=== PATIENT | female | born 1945 | race Caucasian/White ===

== ENCOUNTER 2022-12-05 09:17 | Inpatient (IN) | payer MEDICARE, OTHER ==
[~2022-12-05] VITALS: Ht 149.9 cm; Wt 42.2 kg
[2022-12-05] MEDS ORDERED: SODIUM CHLORIDE 0.9% 1000ML 1,000 ML IV STA (09:29)
[2022-12-05 09:56] LABS: BASOPHILS % 0.4 % (0.0-1.0); EOSINOPHILS % 0.1 % (0.0-6.0); HEMATOCRIT 44.4 % (34.2-44.1); LYMPHOCYTES # (AUTO) 1.3 (1.0-3.2); LYMPHOCYTES % 18.1 % (18.0-39.1); MEAN CORPUSCULAR HEMOGLOBIN 28.2 pg (28-32); MEAN CORPUSCULAR HGB CONC 31.5 g/dL (31-35); MEAN CORPUSCULAR VOLUME 89.3 fL (81-99); MONOCYTES # (AUTO) 0.5 (0.2-0.8); MONOCYTES % 6.8 % (4.4-11.3); NEUTROPHILS # (AUTO) 5.4 (2.1-6.9); NEUTROPHILS % 74.1 % (38.7-80.0); PLATELET COUNT 226 x10e3/uL (140-360); RED BLOOD COUNT 4.97 x10e6/uL (3.6-5.1); RED CELL DISTRIBUTION WIDTH 12.7 % (11.7-14.4)
[2022-12-05 10:14] LABS: CLARITY,URINE HAZY (CLEAR); COLOR,URINE YELLOW (YELLOW); LEUKOCYTE ESTERASE ,URINE NEGATIVE (NEGATIVE); NITRITE,URINE NEGATIVE (NEGATIVE); PROTEIN,URINE DIPSTICK NEGATIVE (NEGATIVE)
[2022-12-05 10:15] LABS: BACTERIA,URINE FEW /HPF; EPITHELIAL CELLS,URINE FEW /LPF; KETONES,URINE NEGATIVE (NEGATIVE); RBC,URINE 0-5 /HPF (0-5); URINE UROBILINOGEN 0.2 mg/dL (0.2 - 1); WBC,URINE (MAN) 0-5 /HPF (0-5)
[2022-12-05 10:17] LABS: ALBUMIN/GLOBULIN RATIO 1.1 (0.8-2.0); ANION GAP 15.1 mmol/L (8-16); CALCIUM 10.4 mg/dL (8.4-10.2); CREATININE, SERUM 0.85 mg/dL (0.57-1.11); MAGNESIUM 1.8 MG/DL (1.3-2.1); POTASSIUM 3.1 mmol/L (3.5-5.1)
[2022-12-05 10:18] LABS: INR 0.94; PARTIAL THROMBOPLASTIN TIME 25.6 seconds (23.8-35.5); PROTHROMBIN TIME 12.8 seconds (11.9-14.5)
[2022-12-05] MEDS ORDERED: Morphine 2mg Syringe 2 MG/ML SYR IV ONE (10:30)
[2022-12-05] MEDS ORDERED: ONDANSETRON HCL INJ 2MG/ML 2ML 2 MG/ML VIAL IV ONE (10:30)
[2022-12-05 10:37] LABS: CREATINE KINASE MB 8.8 ng/mL (0-5.0); THYROID STIMULATING HORMONE 3.864 uIU/mL (0.350-4.940)
[2022-12-05] MEDS ORDERED: ONDANSETRON HCL INJ 2MG/ML 2ML 2 MG/ML VIAL IV PRN (10:45)
[2022-12-05] MEDS ORDERED: ACETAMINOPHEN 325 MG TAB PO PRN ×2 (10:45→13:15)
[2022-12-05] MEDS ORDERED: KCL 20MEQ/.9 SOD CHL 1,000 ML IV ONE (10:45)
[2022-12-05] MEDS ORDERED: POTASSIUM CHLORIDE 20 MEQ TAB CR PO ONE (11:00)
[2022-12-05] MEDS ORDERED: METOPROLOL TARTRATE 25 MG TAB PO ONE (11:30)
[2022-12-05] MEDS ORDERED: ASPIRIN 81 MG CHEW TAB PO ONE (11:30)
[2022-12-05] MEDS ORDERED: METOPROLOL TARTRATE 25 MG TAB ONE (11:32)
[2022-12-05] MEDS: FAMOTIDINE 20 MG/2 ML VIAL IV SCH (11:36)
[2022-12-05] MEDS ORDERED: CLOPIDOGREL BISULFATE 75 MG TAB PO ONE (12:00)
[2022-12-05 13:13] VITALS: BP 168/96
[2022-12-05] MEDS ORDERED: MELATONIN 3 MG TAB PO PRN (13:15)
[2022-12-05] MEDS ORDERED: HYDRALAZINE HCL 20 MG/ML VIAL IV PRN (13:15)
[2022-12-05] MEDS ORDERED: MAGNESIUM HYDROXIDE 30 ML UDC PO PRN (13:15)
[2022-12-05 13:35] LABS: CHOL/HDL RATIO 3.1 (3.0-3.6)
[2022-12-05 15:48] VITALS: BP 142/84
[2022-12-05] MEDS ORDERED: MIRTAZAPINE15 MG PO (15:56)
[2022-12-05] MEDS ORDERED: ATROPINE OS (15:56)
[2022-12-05] MEDS ORDERED: ATORVASTATIN CA20 MG PO (15:56)
[2022-12-05] MEDS ORDERED: LOTEMAX5 ML OS (15:56)
[2022-12-05] MEDS ORDERED: OFLOXACIN5 ML OS (15:56)
[2022-12-05] MEDS: CARVEDILOL 12.5 MG TAB PO SCH (16:36)
[2022-12-05] MEDS ORDERED: METOPROLOL TARTRATE 25 MG TAB PO SCH (17:00)
[2022-12-05 18:04] LABS: CREATINE KINASE MB 9.8 ng/mL (0-5.0)
[2022-12-05] MEDS ORDERED: HEPARIN IV SCH (18:30)
[2022-12-05] MEDS ORDERED: DEXTROSE 5% IV SCH (18:30)
[2022-12-05] MEDS ORDERED: HEPARIN 25,000 UNIT 500 UNIT in DEXTROSE 5% 250ML 250 ML IV SCH (19:00)
[2022-12-05 19:52] VITALS: BP 148/78
[2022-12-05 20:00] VITALS: BP 125/72
[2022-12-05 20:42] VITALS: BP 132/65
[2022-12-05] MEDS ORDERED: HEPARIN 25,000 UNIT DRIP IV ONE (20:42)
[2022-12-06] VITALS (21 sets, daily range): BP systolic 91–166; BP diastolic 56–87
[2022-12-06] MEDS: FAMOTIDINE 20 MG/2 ML VIAL IV SCH ×3 (00:30→22:50)
[2022-12-06 06:03] LABS: BASOPHILS # (AUTO) 0.1 (0.0-0.1); BASOPHILS % 1.1 % (0.0-1.0); EOSINOPHILS # (AUTO) 0.1 (0.0-0.4); EOSINOPHILS % 2.2 % (0.0-6.0); HEMATOCRIT 37.1 % (34.2-44.1); LYMPHOCYTES # (AUTO) 1.7 (1.0-3.2); LYMPHOCYTES % 37.6 % (18.0-39.1); MEAN CORPUSCULAR HEMOGLOBIN 28.6 pg (28-32); MEAN CORPUSCULAR HGB CONC 31.5 g/dL (31-35); MEAN CORPUSCULAR VOLUME 90.7 fL (81-99); MONOCYTES # (AUTO) 0.4 (0.2-0.8); MONOCYTES % 9.8 % (4.4-11.3); NEUTROPHILS # (AUTO) 2.2 (2.1-6.9); NEUTROPHILS % 49.1 % (38.7-80.0); PLATELET COUNT 177 x10e3/uL (140-360); RED BLOOD COUNT 4.09 x10e6/uL (3.6-5.1); RED CELL DISTRIBUTION WIDTH 13.5 % (11.7-14.4)
[2022-12-06 06:18] LABS: ALBUMIN 3.1 g/dL (3.5-5.0); ANION GAP 11.1 mmol/L (8-16); CHOL/HDL RATIO 3.2 (3.0-3.6); CREATININE, SERUM 0.74 mg/dL (0.57-1.11); POTASSIUM 4.1 mmol/L (3.5-5.1)
[2022-12-06 06:19] LABS: HEMOGLOBIN 11.7 g/dL (12.0-16.0)
[2022-12-06 06:38] LABS: CREATINE KINASE MB 5.4 ng/mL (0-5.0)
[2022-12-06] MEDS ORDERED: LISINOPRIL 2.5 MG TAB PO SCH (09:00)
[2022-12-06] MEDS: CARVEDILOL 12.5 MG TAB PO SCH ×2 (09:00→16:07)
[2022-12-06] MEDS ORDERED: ASPIRIN 325 MG TAB EC PO SCH (09:00)
[2022-12-06] MEDS ORDERED: HEPARIN SOD (PORCINE) 1000 UNIT/ML 30ML ONE (09:12)
[2022-12-06] MEDS ORDERED: HEPARIN SOD/SOD CHLORIDE 2,000 ML ONE (09:13)
[2022-12-06] MEDS ORDERED: LIDOCAINE HCL 1% 30ML-PF VIAL ONE (09:13)
[2022-12-06] MEDS ORDERED: IOPAMIDOL 370 MG/ML 100 ML INFUS..BTL INJ ONE (09:14)
[2022-12-06] MEDS ORDERED: NITROGLYCERIN/D5W 200 MCG/ML 250 ML ONE (09:14)
[2022-12-06] MEDS ORDERED: SODIUM CHLORIDE 0.9% 1000ML 1,000 ML ONE (09:14)
[2022-12-06] MEDS ORDERED: MIDAZOLAM HCL 2 MG/2 ML VIAL ONE (09:32)
[2022-12-06] MEDS ORDERED: FENTANYL CITRATE/PF 100MCG/2 ML INJ ONE (09:33)
[2022-12-06] MEDS ORDERED: CLOPIDOGREL BISULFATE 75 MG TAB PO ONE (10:15)
[2022-12-06] MEDS ORDERED: KETOROLAC TROMETHAMINE 30 MG/ML VIAL IV ONE (11:40)
[2022-12-06] MEDS: ASPIRIN 81 MG CHEW TAB PO SCH (11:41)
[2022-12-06] MEDS: ATORVASTATIN 40 MG TAB PO SCH (11:42)
[2022-12-06] MEDS ORDERED: ASPIRIN 81 MG CHEW TAB ONE (11:54)
[2022-12-06] MEDS ORDERED: NAPROXEN 250 MG TAB PO SCH (17:00)
[2022-12-06] MEDS ORDERED: COLCHICINE 0.6 MG TAB PO SCH (17:00)
[2022-12-06] MEDS ORDERED: SODIUM CHLORIDE 0.9% 1000ML 1,000 ML IV ONE (19:00)
[2022-12-07] VITALS (9 sets, daily range): BP systolic 113–180; BP diastolic 62–86
[2022-12-07] MEDS: LOSARTAN POTASSIUM 25 MG TAB PO SCH (08:23)
[2022-12-07] MEDS: CARVEDILOL 12.5 MG TAB PO SCH ×2 (08:23→16:48)
[2022-12-07] MEDS: CLOPIDOGREL BISULFATE 75 MG TAB PO SCH (08:23)
[2022-12-07] MEDS: ATORVASTATIN 40 MG TAB PO SCH (08:24)
[2022-12-07] MEDS: ASPIRIN 81 MG CHEW TAB PO SCH (08:24)
[2022-12-07] MEDS ORDERED: LOSARTAN POTASSIUM 25 MG TAB PO SCH (09:00)
[2022-12-07] MEDS ORDERED: COLCHICINE 0.6 MG TAB PO SCH (09:00)
[2022-12-07] MEDS ORDERED: ONDANSETRON HCL 4 MG ORAL DISINTEGRATING TAB PO PRN (10:45)
[2022-12-07] MEDS: FAMOTIDINE 20 MG/2 ML VIAL IV SCH ×2 (11:22→23:02)
[2022-12-07] MEDS: SODIUM CHLORIDE 0.45% 1,000 ML IV SCH (13:23)
[2022-12-07] MEDS ORDERED: OFLOXACIN5 ML OS (18:38)
[2022-12-07] MEDS ORDERED: LOTEMAX5 ML OS (18:38)
[2022-12-07] MEDS ORDERED: OFLOXACIN 0.3% (OTIC SOL) 5 ML BTL EACH EAR SCH (21:00)
[2022-12-08] VITALS (10 sets, daily range): BP systolic 81–166; BP diastolic 45–85
[2022-12-08] MEDS: SODIUM CHLORIDE 0.45% 1,000 ML IV SCH ×2 (05:17→17:02)
[2022-12-08 08:10] LABS: BASOPHILS % 0.5 % (0.0-1.0); EOSINOPHILS # (AUTO) 0.1 (0.0-0.4); EOSINOPHILS % 1.3 % (0.0-6.0); HEMATOCRIT 39.9 % (34.2-44.1); HEMOGLOBIN 12.5 g/dL (12.0-16.0); LYMPHOCYTES # (AUTO) 1.4 (1.0-3.2); LYMPHOCYTES % 25.8 % (18.0-39.1); MEAN CORPUSCULAR HEMOGLOBIN 28.2 pg (28-32); MEAN CORPUSCULAR HGB CONC 31.3 g/dL (31-35); MEAN CORPUSCULAR VOLUME 90.1 fL (81-99); MONOCYTES # (AUTO) 0.5 (0.2-0.8); NEUTROPHILS # (AUTO) 3.5 (2.1-6.9); NEUTROPHILS % 63.2 % (38.7-80.0); PLATELET COUNT 193 x10e3/uL (140-360); RED BLOOD COUNT 4.43 x10e6/uL (3.6-5.1); RED CELL DISTRIBUTION WIDTH 12.9 % (11.7-14.4)
[2022-12-08 08:29] LABS: ANION GAP 12.7 mmol/L (8-16); CALCIUM 9.4 mg/dL (8.4-10.2); CREATININE, SERUM 0.71 mg/dL (0.57-1.11); POTASSIUM 3.7 mmol/L (3.5-5.1)
[2022-12-08] MEDS: FAMOTIDINE 20 MG/2 ML VIAL IV SCH ×2 (09:25→22:44)
[2022-12-08] MEDS: CLOPIDOGREL BISULFATE 75 MG TAB PO SCH (09:26)
[2022-12-08] MEDS: ASPIRIN 81 MG CHEW TAB PO SCH (09:26)
[2022-12-08] MEDS: LOSARTAN POTASSIUM 25 MG TAB PO SCH (09:26)
[2022-12-08] MEDS: CARVEDILOL 12.5 MG TAB PO SCH (09:27)
[2022-12-08] MEDS: ATORVASTATIN 40 MG TAB PO SCH (09:28)
[2022-12-08] MEDS: OFLOXACIN (OPTH) 5 ML BOTTLE OP SCH ×4 (09:28→22:44)
[2022-12-08] MEDS: ATROPINE SULFATE 1% OPTH SOLN 5 ML OP SCH ×2 (09:31→17:03)
[2022-12-08 10:17] LABS: CLARITY,URINE CLEAR (CLEAR); COLOR,URINE YELLOW (YELLOW)
[2022-12-08 10:18] LABS: KETONES,URINE TRACE (NEGATIVE); LEUKOCYTE ESTERASE ,URINE NEGATIVE (NEGATIVE); NITRITE,URINE NEGATIVE (NEGATIVE); PROTEIN,URINE DIPSTICK NEGATIVE (NEGATIVE); URINE UROBILINOGEN 0.2 mg/dL (0.2 - 1)
[2022-12-08 10:40] LABS: BACTERIA,URINE RARE /HPF; EPITHELIAL CELLS,URINE RARE /LPF; RBC,URINE 0-5 /HPF (0-5); WBC,URINE (MAN) 0-5 /HPF (0-5)
[2022-12-08] MEDS: MIDODRINE HCL 5 MG TABLET PO SCH ×3 (13:48→22:43)
[2022-12-08] MEDS ORDERED: FLUDROCORTISONE ACETATE 0.1 MG TAB PO SCH (14:00)
[2022-12-08] MEDS ORDERED: AMILORIDE HCL 5 MG TAB PO SCH (14:00)
[2022-12-08] MEDS ORDERED: CARVEDILOL 12.5 MG TAB PO SCH (17:00)
[2022-12-09 01:04] VITALS: BP 162/77
[2022-12-09 05:40] VITALS: BP 150/84
[2022-12-09] MEDS: MIDODRINE HCL 5 MG TABLET PO SCH (06:00)
[2022-12-09 08:24] VITALS: BP 118/70
[2022-12-09 08:25] VITALS: BP 114/55
[2022-12-09 08:26] VITALS: BP 98/52
[2022-12-09 08:27] VITALS: BP 118/70
[2022-12-09] MEDS ORDERED: CARVEDILOL 12.5 MG TAB PO SCH (09:00)
[2022-12-09] MEDS ORDERED: COZAAR25 MG PO (10:25)
[2022-12-09] MEDS ORDERED: MIDODRINE HCL5 MG PO (10:25)
[2022-12-09] MEDS ORDERED: PLAVIX75 MG PO (10:25)
[2022-12-09] MEDS ORDERED: ASPIRIN CHEW81 MG PO (10:25)
[2022-12-09] MEDS ORDERED: FLORINEF ACETA0.1 MG PO (10:25)
[2022-12-09] MEDS ORDERED: COREG12.5 MG PO (10:25)
[2022-12-09] MEDS ORDERED: Atorvastatin PO (10:25)
== END 2022-12-09 13:12 | disposition home or self-care (01) | DRG 281 ==
LOC: ER 09:20 → ERHOLD 10:44 → MED/SURG3 12:31 → OBSVTOIN 12-06 05:05
PROVIDERS: ADMIT Internal Medicine; ATTEND Internal Medicine
PROC: 4A023N7 Measurement of Cardiac Sampling and Pressure, Left Heart, Percutaneous Approach (ICD-10-PCS; principal; 2022-12-06)
PROC: B2111ZZ Fluoroscopy of Multiple Coronary Arteries using Low Osmolar Contrast (ICD-10-PCS; 2022-12-06)
PROC: B2151ZZ Fluoroscopy of Left Heart using Low Osmolar Contrast (ICD-10-PCS; 2022-12-06)
PROC: B41F1ZZ Fluoroscopy of Right Lower Extremity Arteries using Low Osmolar Contrast (ICD-10-PCS; 2022-12-06)
DX: I21.A1 Myocardial infarction type 2 (principal); E27.40 Unspecified adrenocortical insufficiency; E44.0 Moderate protein-calorie malnutrition; R64 Cachexia; Z68.1 Body mass index [BMI] 19.9 or less, adult; I25.84 Coronary atherosclerosis due to calcified coronary lesion; I25.83 Coronary atherosclerosis due to lipid rich plaque; I34.0 Nonrheumatic mitral (valve) insufficiency; R03.0 Elevated blood-pressure reading, without diagnosis of hypertension; E86.0 Dehydration; R63.0 Anorexia; I25.10 Atherosclerotic heart disease of native coronary artery without angina pectoris; I95.1 Orthostatic hypotension; E87.6 Hypokalemia; E83.52 Hypercalcemia; E78.5 Hyperlipidemia, unspecified; R91.8 Other nonspecific abnormal finding of lung field; Z98.42 Cataract extraction status, left eye; Z59.6 Low income
CPT/HCPCS: 36415; 70450; 70551; 71250; 72125; 80048; 80053; 80061; 81001; 82533; 82550; 82553; 82948; 83036; 83735; 84443; 84484; 85025; 85610; 85730; 87086; 93005; 93306; 93458; 93880; 99152; 99153; 99252; 99284; C1769; C1887; G0378; J1644; J2001; J2250; J2270; J2405; J3010; J7030; Q9967

== ENCOUNTER 2022-12-18 18:53 | Inpatient (IN) | payer MEDICARE, OTHER ==
[~2022-12-18] VITALS: Ht 152.4 cm; Wt 43.6 kg
[~2022-12-18 18:53] MED LIST: ASPIRIN CHEW81 MG PO; ATORVASTATIN CA20 MG PO; ATROPINE OS; Atorvastatin PO; COREG12.5 MG PO; COZAAR25 MG PO; FLORINEF ACETA0.1 MG PO; LOTEMAX5 ML OS; MIDODRINE HCL5 MG PO; MIRTAZAPINE15 MG PO; OFLOXACIN5 ML OS; PLAVIX75 MG PO
[2022-12-18 19:40] LABS: BASOPHILS % 0.2 % (0.0-1.0); EOSINOPHILS % 0.2 % (0.0-6.0); HEMATOCRIT 41.9 % (34.2-44.1); HEMOGLOBIN 12.5 g/dL (12.0-16.0); LYMPHOCYTES # (AUTO) 1.9 (1.0-3.2); LYMPHOCYTES % 36.9 % (18.0-39.1); MEAN CORPUSCULAR HGB CONC 29.8 g/dL (31-35); MEAN CORPUSCULAR VOLUME 93.7 fL (81-99); MONOCYTES # (AUTO) 0.7 (0.2-0.8); MONOCYTES % 12.8 % (4.4-11.3); NEUTROPHILS # (AUTO) 2.6 (2.1-6.9); NEUTROPHILS % 49.7 % (38.7-80.0); PLATELET COUNT 256 x10e3/uL (140-360); RED BLOOD COUNT 4.47 x10e6/uL (3.6-5.1); RED CELL DISTRIBUTION WIDTH 13.3 % (11.7-14.4)
[2022-12-18] MEDS ORDERED: SODIUM CHLORIDE 0.9% 1000ML 1,000 ML IV ONE ×2 (20:00→21:30)
[2022-12-18 20:03] LABS: ALBUMIN 3.3 g/dL (3.5-5.0); ALBUMIN/GLOBULIN RATIO 0.8 (0.8-2.0); ANION GAP 15.1 mmol/L (8-16); CALCIUM 9.7 mg/dL (8.4-10.2); CREATININE, SERUM 0.99 mg/dL (0.57-1.11); POTASSIUM 3.1 mmol/L (3.5-5.1)
[2022-12-18 20:09] LABS: CREATINE KINASE MB 0.6 ng/mL (0-5.0)
[2022-12-18] MEDS ORDERED: ONDANSETRON HCL INJ 2MG/ML 2ML 2 MG/ML VIAL IV STA (20:11)
[2022-12-18] MEDS ORDERED: GLUCAGON FOR INJ 1 MG VIAL IV ONE (20:15)
[2022-12-18 20:44] LABS: CLARITY,URINE CLEAR (CLEAR); COLOR,URINE YELLOW (YELLOW)
[2022-12-18 20:45] LABS: KETONES,URINE NEGATIVE (NEGATIVE); LEUKOCYTE ESTERASE ,URINE NEGATIVE (NEGATIVE); NITRITE,URINE NEGATIVE (NEGATIVE); PROTEIN,URINE DIPSTICK NEGATIVE (NEGATIVE); URINE UROBILINOGEN 1 mg/dL (0.2 - 1)
[2022-12-18 20:55] LABS: EPITHELIAL CELLS,URINE FEW /LPF; RBC,URINE 0-5 /HPF (0-5); TRANSITIONAL EPI CELLS,URINE FEW; WBC,URINE (MAN) 0-5 /HPF (0-5)
[2022-12-18] MEDS ORDERED: MIDODRINE 2.5 MG TAB PO ONE (21:30)
[2022-12-18] MEDS ORDERED: SODIUM CHLORIDE 0.9% 1000ML 1,000 ML IV SCH (23:15)
[2022-12-19] VITALS (7 sets, daily range): BP systolic 104–155; BP diastolic 60–77
[2022-12-19 04:07] LABS: BASOPHILS % 0.3 % (0.0-1.0); HEMATOCRIT 33.4 % (34.2-44.1); LYMPHOCYTES # (AUTO) 1.3 (1.0-3.2); LYMPHOCYTES % 33.9 % (18.0-39.1); MEAN CORPUSCULAR HEMOGLOBIN 27.9 pg (28-32); MEAN CORPUSCULAR HGB CONC 29.9 g/dL (31-35); MONOCYTES # (AUTO) 0.5 (0.2-0.8); MONOCYTES % 13.7 % (4.4-11.3); NEUTROPHILS % 52.1 % (38.7-80.0); PLATELET COUNT 170 x10e3/uL (140-360); RED BLOOD COUNT 3.59 x10e6/uL (3.6-5.1); RED CELL DISTRIBUTION WIDTH 13.3 % (11.7-14.4)
[2022-12-19 04:24] LABS: ALBUMIN 2.4 g/dL (3.5-5.0); ALBUMIN/GLOBULIN RATIO 0.8 (0.8-2.0); ANION GAP 11.8 mmol/L (8-16); CREATININE, SERUM 0.65 mg/dL (0.57-1.11)
[2022-12-19 04:27] LABS: CALCIUM 7.8 mg/dL (8.4-10.2); POTASSIUM 2.8 mmol/L (3.5-5.1)
[2022-12-19] MEDS ORDERED: KCL 20MEQ/.9 SOD CHL 1,000 ML IV ONE ×2 (04:30→04:48)
[2022-12-19] MEDS ORDERED: POTASSIUM CHLORIDE 20MEQ/15ML UDC PO ONE (04:30)
[2022-12-19] MEDS ORDERED: KCL 20 MEQ PACKET/ ORAL SOLN ONE (04:44)
[2022-12-19] MEDS: FLUDROCORTISONE ACETATE 0.1 MG TAB PO SCH (10:26)
[2022-12-19] MEDS: MIDODRINE 2.5 MG TAB PO SCH ×3 (10:27→17:30)
[2022-12-19] MEDS ORDERED: ACETAMINOPHEN 325 MG TAB PO PRN (14:30)
[2022-12-19] MEDS ORDERED: DOCUSATE SODIUM 100 MG CAP PO PRN (14:30)
[2022-12-19] MEDS ORDERED: ONDANSETRON HCL INJ 2MG/ML 2ML 2 MG/ML VIAL IV PRN (14:30)
[2022-12-19] MEDS: SODIUM CHLORIDE 0.9% 1000ML 1,000 ML IV SCH (18:07)
[2022-12-19 20:27] LABS: CREATINE KINASE MB 1.8 ng/mL (0-5.0)
[2022-12-19] MEDS: MIRTAZAPINE 15 MG TAB PO SCH (21:28)
[2022-12-19] MEDS: ATORVASTATIN 40 MG TAB PO SCH (21:28)
[2022-12-20] VITALS (7 sets, daily range): BP systolic 149–170; BP diastolic 63–80
[2022-12-20] MEDS: SODIUM CHLORIDE 0.9% 1000ML 1,000 ML IV SCH ×3 (03:15→21:05)
[2022-12-20 06:04] LABS: BASOPHILS % 0.4 % (0.0-1.0); EOSINOPHILS # (AUTO) 0.1 (0.0-0.4); EOSINOPHILS % 1.8 % (0.0-6.0); HEMATOCRIT 38.3 % (34.2-44.1); HEMOGLOBIN 11.2 g/dL (12.0-16.0); LYMPHOCYTES # (AUTO) 1.4 (1.0-3.2); LYMPHOCYTES % 27.8 % (18.0-39.1); MEAN CORPUSCULAR HEMOGLOBIN 27.7 pg (28-32); MEAN CORPUSCULAR HGB CONC 29.2 g/dL (31-35); MEAN CORPUSCULAR VOLUME 94.6 fL (81-99); MONOCYTES # (AUTO) 0.5 (0.2-0.8); NEUTROPHILS # (AUTO) 3.1 (2.1-6.9); NEUTROPHILS % 59.8 % (38.7-80.0); PLATELET COUNT 178 x10e3/uL (140-360); RED BLOOD COUNT 4.05 x10e6/uL (3.6-5.1); RED CELL DISTRIBUTION WIDTH 13.5 % (11.7-14.4)
[2022-12-20 06:30] LABS: CALCIUM 8.3 mg/dL (8.4-10.2); CREATININE, SERUM 0.59 mg/dL (0.57-1.11); MAGNESIUM 1.5 MG/DL (1.3-2.1); PHOSPHORUS 1.6 MG/DL (2.3-4.7)
[2022-12-20] MEDS ORDERED: SODIUM CHLORIDE 0.9% 1000ML 500 ML IV ONE (07:00)
[2022-12-20 07:40] LABS: CREATINE KINASE MB 1.7 ng/mL (0-5.0)
[2022-12-20 07:52] LABS: PLATELET ESTIMATE ADEQUATE; PLATELET MORPHOLOGY COMMENT NORMAL; RBC MORPHOLOGY COMMENT NORMAL
[2022-12-20] MEDS: MIDODRINE 2.5 MG TAB PO SCH ×3 (08:00→16:00)
[2022-12-20] MEDS ORDERED: SODIUM CHLORIDE 0.9% 500ML 500 ML IV ONE (08:00)
[2022-12-20] MEDS ORDERED: POTASSIUM PHOSPHATE 15 MM in SODIUM CHLORIDE 0.9% 250ML 250 ML IV ONE (08:00)
[2022-12-20] MEDS: CLOPIDOGREL BISULFATE 75 MG TAB PO SCH (09:08)
[2022-12-20] MEDS: FLUDROCORTISONE ACETATE 0.1 MG TAB PO SCH (09:08)
[2022-12-20] MEDS: ASPIRIN 81 MG CHEW TAB PO SCH (09:09)
[2022-12-20] MEDS ORDERED: ONDANSETRON HCL 4 MG ORAL DISINTEGRATING TAB PO PRN (14:30)
[2022-12-20] MEDS: MIRTAZAPINE 15 MG TAB PO SCH (21:05)
[2022-12-20] MEDS: ATORVASTATIN 40 MG TAB PO SCH (21:05)
[2022-12-21] VITALS (11 sets, daily range): BP systolic 81–174; BP diastolic 43–85
[2022-12-21] MEDS: SODIUM CHLORIDE 0.9% 1000ML 1,000 ML IV SCH ×3 (05:42→22:11)
[2022-12-21 07:02] LABS: BASOPHILS % 0.3 % (0.0-1.0); EOSINOPHILS % 0.7 % (0.0-6.0); HEMATOCRIT 35.1 % (34.2-44.1); HEMOGLOBIN 11.7 g/dL (12.0-16.0); LYMPHOCYTES # (AUTO) 1.7 (1.0-3.2); LYMPHOCYTES % 30.1 % (18.0-39.1); MEAN CORPUSCULAR HEMOGLOBIN 28.5 pg (28-32); MEAN CORPUSCULAR HGB CONC 33.3 g/dL (31-35); MEAN CORPUSCULAR VOLUME 85.4 fL (81-99); MONOCYTES # (AUTO) 0.5 (0.2-0.8); MONOCYTES % 8.4 % (4.4-11.3); NEUTROPHILS # (AUTO) 3.4 (2.1-6.9); NEUTROPHILS % 60.2 % (38.7-80.0); PLATELET COUNT 176 x10e3/uL (140-360); RED BLOOD COUNT 4.11 x10e6/uL (3.6-5.1); RED CELL DISTRIBUTION WIDTH 13.2 % (11.7-14.4)
[2022-12-21 07:38] LABS: ANION GAP 13.4 mmol/L (8-16); CALCIUM 7.5 mg/dL (8.4-10.2); CREATININE, SERUM 0.59 mg/dL (0.57-1.11); MAGNESIUM 1.2 MG/DL (1.3-2.1); PHOSPHORUS 3.1 MG/DL (2.3-4.7)
[2022-12-21 07:50] LABS: POTASSIUM 2.4 mmol/L (3.5-5.1)
[2022-12-21] MEDS: ASPIRIN 81 MG CHEW TAB PO SCH (08:47)
[2022-12-21] MEDS: CLOPIDOGREL BISULFATE 75 MG TAB PO SCH (08:47)
[2022-12-21] MEDS: FLUDROCORTISONE ACETATE 0.1 MG TAB PO SCH (08:47)
[2022-12-21] MEDS: MIDODRINE 2.5 MG TAB PO SCH ×3 (08:47→18:38)
[2022-12-21] MEDS ORDERED: POTASSIUM CHLORIDE 10MEQ/100ML 300 ML IV ONE (09:00)
[2022-12-21] MEDS ORDERED: POTASSIUM CHLO10 ME1 PO (16:53)
[2022-12-21] MEDS ORDERED: FLORINEF ACETA0.1 MG PO (16:53)
[2022-12-21] MEDS ORDERED: POTASSIUM CHLORIDE 10MEQ EA PO ONE (18:15)
[2022-12-21] MEDS ORDERED: SODIUM CHLORIDE 0.9% 500ML 500 ML IV ONE (18:15)
[2022-12-21] MEDS: MIRTAZAPINE 15 MG TAB PO SCH (22:12)
[2022-12-21] MEDS: ATORVASTATIN 40 MG TAB PO SCH (22:12)
[2022-12-22] VITALS (8 sets, daily range): BP systolic 82–172; BP diastolic 44–97
[2022-12-22] MEDS: MIDODRINE 2.5 MG TAB PO SCH ×3 (08:00→15:31)
[2022-12-22] MEDS: CLOPIDOGREL BISULFATE 75 MG TAB PO SCH (09:47)
[2022-12-22] MEDS: ASPIRIN 81 MG CHEW TAB PO SCH (09:47)
[2022-12-22] MEDS: FLUDROCORTISONE ACETATE 0.1 MG TAB PO SCH (09:47)
[2022-12-22] MEDS: SODIUM CHLORIDE 0.9% 1000ML 1,000 ML IV SCH ×2 (09:48→21:39)
[2022-12-22] MEDS ORDERED: POTASSIUM CHLORIDE 20 MEQ TAB CR PO ONE ×2 (11:00→11:30)
[2022-12-22] MEDS: ATORVASTATIN 40 MG TAB PO SCH (21:39)
[2022-12-22] MEDS: MIRTAZAPINE 15 MG TAB PO SCH (21:39)
[2022-12-23] VITALS (10 sets, daily range): BP systolic 93–191; BP diastolic 70–98
[2022-12-23] MEDS: SODIUM CHLORIDE 0.9% 1000ML 1,000 ML IV SCH ×4 (00:42→16:42)
[2022-12-23 06:47] LABS: BASOPHILS % 0.2 % (0.0-1.0); EOSINOPHILS # (AUTO) 0.1 (0.0-0.4); EOSINOPHILS % 2.1 % (0.0-6.0); HEMOGLOBIN 11.3 g/dL (12.0-16.0); LYMPHOCYTES # (AUTO) 1.5 (1.0-3.2); LYMPHOCYTES % 24.3 % (18.0-39.1); MEAN CORPUSCULAR HEMOGLOBIN 29.3 pg (28-32); MEAN CORPUSCULAR HGB CONC 34.2 g/dL (31-35); MEAN CORPUSCULAR VOLUME 85.5 fL (81-99); MONOCYTES # (AUTO) 0.7 (0.2-0.8); MONOCYTES % 11.1 % (4.4-11.3); NEUTROPHILS # (AUTO) 3.9 (2.1-6.9); PLATELET COUNT 177 x10e3/uL (140-360); RED BLOOD COUNT 3.86 x10e6/uL (3.6-5.1); RED CELL DISTRIBUTION WIDTH 13.4 % (11.7-14.4)
[2022-12-23 07:15] LABS: ANION GAP 13.3 mmol/L (8-16); BLOOD UREA NITROGEN < 5 mg/dL (7-26); CARBON DIOXIDE 26 mmol/L (22-29); CHLORIDE 109 mmol/L (98-107); GLUCOSE 94 mg/dL (74-118); SODIUM 146 mmol/L (136-145)
[2022-12-23 07:23] LABS: BUN/CREATININE RATIO 8 (6-25)
[2022-12-23 07:24] LABS: POTASSIUM 2.3 mmol/L (3.5-5.1)
[2022-12-23] MEDS ORDERED: POTASSIUM CHLORIDE 20MEQ/100ML 100 ML IV ONE (08:30)
[2022-12-23] MEDS ORDERED: POTASSIUM CHLORIDE 20 MEQ TAB CR PO ONE (08:30)
[2022-12-23] MEDS: MIDODRINE 2.5 MG TAB PO SCH ×3 (09:51→16:00)
[2022-12-23] MEDS: ASPIRIN 81 MG CHEW TAB PO SCH (09:51)
[2022-12-23] MEDS: FLUDROCORTISONE ACETATE 0.1 MG TAB PO SCH (09:51)
[2022-12-23] MEDS: CLOPIDOGREL BISULFATE 75 MG TAB PO SCH (09:51)
[2022-12-23] MEDS ORDERED: MAGNESIUM SULFATE 2GM/50ML 50 ML IV ONE ×2 (11:30→15:30)
[2022-12-23] MEDS ORDERED: METRONIDAZOLE 500MG/NS 100ML 100 ML IV SCH (18:15)
[2022-12-23] MEDS: METRONIDAZOLE 500MG/NS 100ML 100 ML IV SCH (20:15)
[2022-12-23] MEDS: MIRTAZAPINE 15 MG TAB PO SCH (20:16)
[2022-12-23] MEDS: ATORVASTATIN 40 MG TAB PO SCH (20:16)
[2022-12-24] VITALS (9 sets, daily range): BP systolic 127–177; BP diastolic 73–97
[2022-12-24] MEDS: SODIUM CHLORIDE 0.9% 1000ML 1,000 ML IV SCH ×3 (02:38→19:44)
[2022-12-24] MEDS: METRONIDAZOLE 500MG/NS 100ML 100 ML IV SCH ×3 (05:25→19:45)
[2022-12-24 06:24] LABS: BASOPHILS % 0.3 % (0.0-1.0); EOSINOPHILS # (AUTO) 0.2 (0.0-0.4); EOSINOPHILS % 2.7 % (0.0-6.0); HEMATOCRIT 34.5 % (34.2-44.1); HEMOGLOBIN 11.8 g/dL (12.0-16.0); LYMPHOCYTES # (AUTO) 1.7 (1.0-3.2); LYMPHOCYTES % 28.9 % (18.0-39.1); MEAN CORPUSCULAR HGB CONC 34.2 g/dL (31-35); MEAN CORPUSCULAR VOLUME 81.9 fL (81-99); MONOCYTES # (AUTO) 0.5 (0.2-0.8); MONOCYTES % 8.9 % (4.4-11.3); NEUTROPHILS # (AUTO) 3.5 (2.1-6.9); PLATELET COUNT 211 x10e3/uL (140-360); RED BLOOD COUNT 4.21 x10e6/uL (3.6-5.1); RED CELL DISTRIBUTION WIDTH 13.2 % (11.7-14.4)
[2022-12-24 06:55] LABS: ANION GAP 12.6 mmol/L (8-16); CALCIUM 7.3 mg/dL (8.4-10.2); CREATININE, SERUM 0.58 mg/dL (0.57-1.11)
[2022-12-24 07:46] LABS: POTASSIUM 2.6 mmol/L (3.5-5.1)
[2022-12-24] MEDS: MIDODRINE 2.5 MG TAB PO SCH ×3 (08:00→16:00)
[2022-12-24] MEDS: ASPIRIN 81 MG CHEW TAB PO SCH (09:00)
[2022-12-24] MEDS ORDERED: POTASSIUM CHLORIDE 10MEQ EA PO ONE (09:00)
[2022-12-24] MEDS ORDERED: POTASSIUM CHLORIDE 10MEQ/100ML 100 ML IV ONE ×3 (09:00→12:00)
[2022-12-24] MEDS: FLUDROCORTISONE ACETATE 0.1 MG TAB PO SCH (09:00)
[2022-12-24] MEDS: CLOPIDOGREL BISULFATE 75 MG TAB PO SCH (09:01)
[2022-12-24] MEDS: ATORVASTATIN 40 MG TAB PO SCH (21:16)
[2022-12-24] MEDS: MIRTAZAPINE 15 MG TAB PO SCH (21:16)
[2022-12-25] VITALS (9 sets, daily range): BP systolic 90–177; BP diastolic 73–101
[2022-12-25] MEDS: SODIUM CHLORIDE 0.9% 1000ML 1,000 ML IV SCH ×4 (00:42→21:31)
[2022-12-25] MEDS ORDERED: POTASSIUM CHLORIDE 20 MEQ TAB CR PO STA ×4 (00:59→20:05)
[2022-12-25] MEDS ORDERED: POTASSIUM CHLORIDE 20 MEQ TAB CR PO ONE (02:24)
[2022-12-25] MEDS: METRONIDAZOLE 500MG/NS 100ML 100 ML IV SCH ×3 (04:53→21:26)
[2022-12-25 06:16] LABS: ANION GAP 11.6 mmol/L (8-16); BLOOD UREA NITROGEN < 5 mg/dL (7-26); CALCIUM 7.2 mg/dL (8.4-10.2); CARBON DIOXIDE 25 mmol/L (22-29); CHLORIDE 110 mmol/L (98-107); CREATININE, SERUM 0.59 mg/dL (0.57-1.11); GLUCOSE 104 mg/dL (74-118); MAGNESIUM 1.5 MG/DL (1.3-2.1); SODIUM 144 mmol/L (136-145)
[2022-12-25 06:19] LABS: BUN/CREATININE RATIO 8 (6-25); POTASSIUM 2.6 mmol/L (3.5-5.1)
[2022-12-25] MEDS ORDERED: POTASSIUM CHLORIDE 20MEQ/100ML 200 ML IV ONE ×2 (07:30→11:00)
[2022-12-25] MEDS ORDERED: MAGNESIUM SULFATE 2GM/50ML 50 ML IV ONE (07:30)
[2022-12-25] MEDS ORDERED: SODIUM CHLORIDE 0.9% 250ML 250 ML ONE (08:49)
[2022-12-25] MEDS: ASPIRIN 81 MG CHEW TAB PO SCH (09:16)
[2022-12-25] MEDS: CLOPIDOGREL BISULFATE 75 MG TAB PO SCH (09:16)
[2022-12-25] MEDS: FLUDROCORTISONE ACETATE 0.1 MG TAB PO SCH (09:16)
[2022-12-25] MEDS: MIDODRINE 2.5 MG TAB PO SCH ×3 (09:23→16:00)
[2022-12-25] MEDS ORDERED: POTASSIUM CHLORIDE 20MEQ/100ML 100 ML IV ONE (14:45)
[2022-12-25] MEDS: MIRTAZAPINE 15 MG TAB PO SCH (21:29)
[2022-12-25] MEDS: ATORVASTATIN 40 MG TAB PO SCH (21:29)
[2022-12-26] VITALS (8 sets, daily range): BP systolic 145–178; BP diastolic 82–101
[2022-12-26] MEDS: METRONIDAZOLE 500MG/NS 100ML 100 ML IV SCH ×2 (05:18→12:32)
[2022-12-26 06:57] LABS: ANION GAP 16.7 mmol/L (8-16); CALCIUM 7.9 mg/dL (8.4-10.2); CREATININE, SERUM 0.6 mg/dL (0.57-1.11); POTASSIUM 3.7 mmol/L (3.5-5.1)
[2022-12-26] MEDS: MIDODRINE 2.5 MG TAB PO SCH ×3 (08:00→16:00)
[2022-12-26] MEDS: ASPIRIN 81 MG CHEW TAB PO SCH (09:42)
[2022-12-26] MEDS: CLOPIDOGREL BISULFATE 75 MG TAB PO SCH (09:42)
[2022-12-26] MEDS: SODIUM CHLORIDE 0.9% 1000ML 1,000 ML IV SCH ×2 (09:42→12:33)
[2022-12-26] MEDS ORDERED: POTASSIUM CHLORIDE 20 MEQ TAB CR PO STA (11:45)
[2022-12-26] MEDS ORDERED: POTASSIUM CHLO20 ME1 PO ×2 (12:36→16:52)
[2022-12-26 15:20] LABS: CLARITY,URINE SL CLOUDY (CLEAR); COLOR,URINE YELLOW (YELLOW); KETONES,URINE 1+ (NEGATIVE); LEUKOCYTE ESTERASE ,URINE LARGE (NEGATIVE); NITRITE,URINE NEGATIVE (NEGATIVE); PROTEIN,URINE DIPSTICK NEGATIVE (NEGATIVE); URINE UROBILINOGEN 0.2 mg/dL (0.2 - 1)
[2022-12-26 15:29] LABS: BACTERIA,URINE MANY /HPF; EPITHELIAL CELLS,URINE FEW /LPF; WBC,URINE (MAN) >50 /HPF (0-5)
[2022-12-26] MEDS ORDERED: CEPHALEXIN 500 MG CAP PO SCH (16:30)
[2022-12-26] MEDS ORDERED: CEPHALEXIN500 MG PO (16:53)
[2022-12-26] MEDS ORDERED: POTASSIUM CHLORIDE 20 MEQ TAB CR PO ONE (17:00)
== END 2022-12-26 20:00 | disposition home or self-care (01) | DRG 312 ==
LOC: ER 19:00 → ERHOLD 23:01 → MED/SURG2 12-19 10:03
PROVIDERS: ADMIT Internal Medicine; ATTEND Internal Medicine
DX: I95.1 Orthostatic hypotension (principal); U07.1 COVID-19; N17.9 Acute kidney failure, unspecified; E87.6 Hypokalemia; R91.8 Other nonspecific abnormal finding of lung field; I10 Essential (primary) hypertension; I25.10 Atherosclerotic heart disease of native coronary artery without angina pectoris; E78.5 Hyperlipidemia, unspecified; I25.2 Old myocardial infarction; Z79.82 Long term (current) use of aspirin; Z79.02 Long term (current) use of antithrombotics/antiplatelets
CPT/HCPCS: 36415; 70450; 71045; 80048; 80053; 81001; 82550; 82553; 83735; 84100; 84132; 84443; 84484; 85025; 93005; 94799; 99252; 99285; J1610; J3475; J3480; J7030; J7040; J7050